=== PATIENT | male | born 1935 | race Caucasian/White ===

== ENCOUNTER 2019-06-16 17:22 | Inpatient (IN) | payer MEDICARE, MEDICAID ==
[~2019-06-16] VITALS: Ht 167.6 cm; Wt 70.9 kg
[~2019-06-16 17:22] MED LIST: AMLO5TAB18 PO; ASPI-611 PO; CLOP75TA35 PO; EVOL140P SQ; HYDR-3686 PO; LABE100T5 PO; LISI-230 PO; OMEP-84 PO; TRAM50TA2 PO
--- NOTE | 2019-06-16 18:05 | NUR ---
LAB AT BEDSIDE, REQUESTED URINE SPECIMAN
[2019-06-16 18:23] LABS: BASOPHILS # (AUTO) 0.1 X10'3 (0-0.2); BASOPHILS % (AUTO) 0.7 % (0-1); EOSINOPHILS # (AUTO) 0.2 X10'3 (0-0.9); EOSINOPHILS % (AUTO) 1.6 % (0-6); HEMATOCRIT 44.3 % (42.0-52.0); HEMOGLOBIN 15.1 g/dl (14.0-17.9); LYMPHOCYTES % (AUTO) 8.1 % (21-51); MEAN CORPUSCULAR HEMOGLOBIN 29.1 PG (27.0-31.0); MEAN CORPUSCULAR VOLUME 85.6 FL (78-98); MEAN PLATELET VOLUME 7.9 FL (7.4-10.4); MONOCYTES # (AUTO) 0.6 X10'3 (0-0.9); MONOCYTES % (AUTO) 4.4 % (2-12); NEUTROPHILS % (AUTO) 85.2 % (42-75); PLATELET COUNT 374 X10'3 (140-440); RED BLOOD COUNT 5.18 X10'6 (4.70-6.10); RED CELL DISTRIBUTION WIDTH 14.2 % (11.5-14.5); WHITE BLOOD COUNT 12.9 X10'3 (4.5-11.0)
[2019-06-16 18:28] LABS: ALANINE AMINOTRANSFERASE 33 U/L (12-78); ALBUMIN 3.7 G/DL (3.4-5.0); ALBUMIN/GLOBULIN RATIO 0.8 (1.1-1.5); ALKALINE PHOSPHATASE 89 IU/L (46-116); ANION GAP 8 (8-16); ASPARTATE AMINO TRANSFERASE 18 U/L (10-37); BILIRUBIN,TOTAL 0.5 MG/DL (0.1-1.0); BLOOD UREA NITROGEN 19 MG/DL (7-18); BUN/CREATININE RATIO 17.3 (5.4-32.0); CALCIUM 10.2 MG/DL (8.5-10.1); CHLORIDE 99 MMOL/L (99-107); GLUCOSE 129 MG/DL (70-104); POTASSIUM 4.1 MMOL/L (3.5-5.1); SODIUM 136 MMOL/L (135-145); TOTAL CARBON DIOXIDE 29.1 MMOL/L (24-32); TOTAL PROTEIN 8.1 G/DL (6.4-8.2); eGFR 64 ML/MIN
[2019-06-16] MEDS ORDERED: ondansetron/PF 4mg/2ml inj IV ONE ×2 (19:15→19:50)
--- NOTE | 2019-06-16 19:15 | NUR ---
Assumed patient care. The patient is alert and well oriented. W/D, fair color. Patient has not voided as of yet. Nausea is now present. Dr. Granado consulted, Zofran 4mg will be given IV. Plan to move patient into a room. A urine sample is pending.
[2019-06-16 19:28] LABS: TROPONIN I < 0.04 NG/ML (0.0-0.05)
--- NOTE | 2019-06-16 19:33 | NUR ---
pt unable to make urine at this time
[2019-06-16] MEDS ORDERED: normal saline 1000ML IV soln IVB ONE (19:50)
[2019-06-16] MEDS ORDERED: morphine 4 MG/ML inj SYRINge IV PRN (19:50)
[2019-06-16] MEDS ORDERED: metroNIDAZOLE-Flagyl 500mg/NS 100 ML IV STA (21:51)
[2019-06-16] MEDS ORDERED: LIDOcaine Viscous 15ml cup MM PRN (22:35)
[2019-06-16] MEDS ORDERED: magnesium 4gm in 100ml NS 100 ML IV PRN (23:35)
[2019-06-16] MEDS ORDERED: ondansetron/PF 4mg/2ml inj IV PRN (23:35)
[2019-06-16] MEDS ORDERED: acetaminophen 325mg tablet PO PRN (23:35)
[2019-06-16] MEDS ORDERED: morphine 2 MG/ML inj. syringe IV PRN (23:35)
[2019-06-16] MEDS ORDERED: potassium Cl 20 mEq SR tablet PO PRN ×2 (23:35)
[2019-06-16] MEDS ORDERED: magnesium 2GM in 50ml NS 50 ML IV PRN (23:35)
[2019-06-16] MEDS ORDERED: potassium CL 10mEq/100ml bag 100 ML IV PRN (23:35)
[2019-06-17] MEDS: normal saline 1000ml 1,000 ML IV SCH ×3 (00:29→22:13)
[2019-06-17 00:30] VITALS: BP 184/90
[2019-06-17] MEDS: morphine 2 MG/ML inj. syringe IV PRN ×2 (00:30→09:18)
[2019-06-17 01:00] VITALS: BP 142/72
[2019-06-17 04:51] LABS: BASOPHILS % (AUTO) 0.4 % (0-1); EOSINOPHILS % (AUTO) 0.3 % (0-6); HEMATOCRIT 37.8 % (42.0-52.0); LYMPHOCYTES % (AUTO) 11.2 % (21-51); MEAN CORPUSCULAR HEMOGLOBIN 29.6 PG (27.0-31.0); MEAN CORPUSCULAR HGB CONC 34.5 g/dL (33.0-36.5); MEAN CORPUSCULAR VOLUME 85.7 FL (78-98); MEAN PLATELET VOLUME 7.8 FL (7.4-10.4); MONOCYTES # (AUTO) 0.8 X10'3 (0-0.9); MONOCYTES % (AUTO) 8.4 % (2-12); NEUTROPHILS # (AUTO) 7.3 X10'3 (1.8-7.7); NEUTROPHILS % (AUTO) 79.7 % (42-75); PLATELET COUNT 310 X10'3 (140-440); RED BLOOD COUNT 4.41 X10'6 (4.70-6.10); RED CELL DISTRIBUTION WIDTH 14.3 % (11.5-14.5); WHITE BLOOD COUNT 9.1 X10'3 (4.5-11.0)
[2019-06-17 05:10] LABS: ANION GAP 7 (8-16); CHLORIDE 103 MMOL/L (99-107); GLUCOSE 111 MG/DL (70-104); POTASSIUM 3.9 MMOL/L (3.5-5.1); SODIUM 138 MMOL/L (135-145)
[2019-06-17 05:11] LABS: ALANINE AMINOTRANSFERASE 26 U/L (12-78); ALBUMIN/GLOBULIN RATIO 0.8 (1.1-1.5); ALKALINE PHOSPHATASE 72 IU/L (46-116); ASPARTATE AMINO TRANSFERASE 19 U/L (10-37); BILIRUBIN,TOTAL 0.5 MG/DL (0.1-1.0); BLOOD UREA NITROGEN 23 MG/DL (7-18); BUN/CREATININE RATIO 19.7 (5.4-32.0); CREATININE 1.17 MG/DL (0.60-1.10); MAGNESIUM 1.5 MG/DL (1.5-2.4); TOTAL PROTEIN 6.8 G/DL (6.4-8.2); eGFR 60 ML/MIN
--- NOTE | 2019-06-17 06:00 | NUR ---
Problems reprioritized. Patient report given, questions answered & plan of care reviewed with Susanna LOMBARDI.
[2019-06-17 07:25] VITALS: BP 155/71
[2019-06-17] MEDS: K and/or MAG REPLACEMENT MC SCH (08:00)
[2019-06-17] MEDS: enoxaparin 40mg/0.4ml syringe SQ SCH (08:00)
[2019-06-17] MEDS ORDERED: traMADol 50MG tablet PO PRN (08:55)
[2019-06-17] MEDS: ciprofloxacin lact 400MG/200ML 200 ML IV SCH ×2 (08:58→19:13)
[2019-06-17] MEDS: HYDROchlorothiazide 12.5mg capsule PO SCH (09:16)
[2019-06-17] MEDS: lisinopril 10 MG tablet PO SCH (09:17)
[2019-06-17 11:00] VITALS: BP 146/60
[2019-06-17] MEDS: metroNIDAZOLE-Flagyl 500mg/NS 100 ML IV SCH (15:20)
--- NOTE | 2019-06-17 18:30 | NUR ---
Problems reprioritized. Patient report given, questions answered & plan of care reviewed with Manny LOMBARDI.
--- NOTE | 2019-06-17 18:53 | NUR ---
Patient in room [facility]. I have received report from Susanna LOMBARDI and had the opportunity to ask questions and assume patient care.
[2019-06-17] MEDS: labetalol 100mg tablet PO SCH (19:12)
[2019-06-17] MEDS: diatr meglu/diatrizoate 30ml oral sol.-(3 dose) bottle PO SCH (20:57)
[2019-06-18] MEDS: morphine 2 MG/ML inj. syringe IV PRN (00:37)
[2019-06-18] MEDS: metroNIDAZOLE-Flagyl 500mg/NS 100 ML IV SCH ×3 (00:38→15:49)
[2019-06-18 05:30] LABS: BASOPHILS % (AUTO) 0.5 % (0-1); EOSINOPHILS # (AUTO) 0.1 X10'3 (0-0.9); EOSINOPHILS % (AUTO) 1.2 % (0-6); HEMATOCRIT 33.8 % (42.0-52.0); HEMOGLOBIN 11.6 g/dl (14.0-17.9); LYMPHOCYTES # (AUTO) 1.2 X10'3 (1.1-4.8); LYMPHOCYTES % (AUTO) 15.3 % (21-51); MEAN CORPUSCULAR HEMOGLOBIN 29.6 PG (27.0-31.0); MEAN CORPUSCULAR HGB CONC 34.3 g/dL (33.0-36.5); MEAN CORPUSCULAR VOLUME 86.3 FL (78-98); MEAN PLATELET VOLUME 7.7 FL (7.4-10.4); MONOCYTES # (AUTO) 0.7 X10'3 (0-0.9); MONOCYTES % (AUTO) 8.3 % (2-12); NEUTROPHILS # (AUTO) 6.1 X10'3 (1.8-7.7); NEUTROPHILS % (AUTO) 74.7 % (42-75); PLATELET COUNT 270 X10'3 (140-440); RED BLOOD COUNT 3.91 X10'6 (4.70-6.10); RED CELL DISTRIBUTION WIDTH 14.3 % (11.5-14.5); WHITE BLOOD COUNT 8.2 X10'3 (4.5-11.0)
[2019-06-18 05:50] LABS: ALANINE AMINOTRANSFERASE 27 U/L (12-78); ALBUMIN 2.9 G/DL (3.4-5.0); ALBUMIN/GLOBULIN RATIO 0.9 (1.1-1.5); ALKALINE PHOSPHATASE 66 IU/L (46-116); ANION GAP 6 (8-16); ASPARTATE AMINO TRANSFERASE 29 U/L (10-37); BILIRUBIN,TOTAL 0.5 MG/DL (0.1-1.0); BLOOD UREA NITROGEN 17 MG/DL (7-18); BUN/CREATININE RATIO 16.5 (5.4-32.0); CALCIUM 8.3 MG/DL (8.5-10.1); CHLORIDE 104 MMOL/L (99-107); CREATININE 1.03 MG/DL (0.60-1.10); GLUCOSE 93 MG/DL (70-104); MAGNESIUM 1.5 MG/DL (1.5-2.4); POTASSIUM 3.4 MMOL/L (3.5-5.1); SODIUM 138 MMOL/L (135-145); TOTAL CARBON DIOXIDE 27.8 MMOL/L (24-32); TOTAL PROTEIN 6.3 G/DL (6.4-8.2); eGFR 69 ML/MIN
--- NOTE | 2019-06-18 06:22 | NUR ---
Problems reprioritized. Patient report given, questions answered & plan of care reviewed with Paulina LOMBARDI.
--- NOTE | 2019-06-18 06:34 | NUR ---
Patient in room [facility]. I have received report from Manny LOMBARDI and had the opportunity to ask questions and assume patient care.
[2019-06-18 07:00] VITALS: BP 155/73
[2019-06-18] MEDS: diatr meglu/diatrizoate 30ml oral sol.-(3 dose) bottle PO SCH ×3 (07:40→20:48)
[2019-06-18] MEDS: K and/or MAG REPLACEMENT MC SCH (08:00)
[2019-06-18] MEDS: ciprofloxacin lact 400MG/200ML 200 ML IV SCH ×2 (09:30→20:14)
[2019-06-18 11:00] VITALS: BP 172/83
[2019-06-18] MEDS: pantoprazole 40mg Tablet.DR PO SCH (11:32)
[2019-06-18] MEDS: labetalol 100mg tablet PO SCH ×2 (11:32→20:13)
[2019-06-18] MEDS: HYDROchlorothiazide 12.5mg capsule PO SCH (11:32)
[2019-06-18] MEDS: amLODIPine 5mg tablet PO SCH (11:32)
[2019-06-18] MEDS: lisinopril 10 MG tablet PO SCH (11:33)
[2019-06-18] MEDS: normal saline 1000ml 1,000 ML IV SCH (11:49)
[2019-06-18] MEDS: enoxaparin 40mg/0.4ml syringe SQ SCH (11:49)
[2019-06-18] MEDS: potassium CL 10mEq/100ml bag 100 ML IV PRN ×4 (11:51→22:45)
[2019-06-18] MEDS ORDERED: LORazepam 0.5 MG tablet PO PRN (15:00)
[2019-06-18 18:00] VITALS: BP 164/78
--- NOTE | 2019-06-18 18:49 | NUR ---
Patient in room [facility]. I have received report from Paulina LOMBARDI and had the opportunity to ask questions and assume patient care.
[2019-06-18] MEDS ORDERED: diatr meglu/diatrizoate 30ml oral sol.-(3 dose) bottle PO SCH (21:00)
[2019-06-19] VITALS: BP 144/84
[2019-06-19] MEDS: normal saline 1000ml 1,000 ML IV SCH ×2 (05:14→07:35)
--- NOTE | 2019-06-19 06:21 | NUR ---
Problems reprioritized. Patient report given, questions answered & plan of care reviewed with MARIA C Carson. Addendum: 06/19/19 at 0623 by Manny Coley RN Report was given to MARIA C Mukherjee
[2019-06-19 06:27] LABS: BASOPHILS % (AUTO) 0.6 % (0-1); EOSINOPHILS # (AUTO) 0.1 X10'3 (0-0.9); EOSINOPHILS % (AUTO) 1.4 % (0-6); HEMATOCRIT 34.5 % (42.0-52.0); HEMOGLOBIN 11.9 g/dl (14.0-17.9); LYMPHOCYTES # (AUTO) 0.9 X10'3 (1.1-4.8); LYMPHOCYTES % (AUTO) 13.3 % (21-51); MEAN CORPUSCULAR HEMOGLOBIN 29.5 PG (27.0-31.0); MEAN CORPUSCULAR HGB CONC 34.7 g/dL (33.0-36.5); MEAN CORPUSCULAR VOLUME 85.2 FL (78-98); MEAN PLATELET VOLUME 7.8 FL (7.4-10.4); MONOCYTES # (AUTO) 0.7 X10'3 (0-0.9); MONOCYTES % (AUTO) 10.3 % (2-12); NEUTROPHILS % (AUTO) 74.4 % (42-75); PLATELET COUNT 272 X10'3 (140-440); RED BLOOD COUNT 4.04 X10'6 (4.70-6.10); WHITE BLOOD COUNT 6.8 X10'3 (4.5-11.0)
[2019-06-19 06:32] LABS: ALANINE AMINOTRANSFERASE 29 U/L (12-78); ALBUMIN 3.1 G/DL (3.4-5.0); ALBUMIN/GLOBULIN RATIO 0.9 (1.1-1.5); ALKALINE PHOSPHATASE 64 IU/L (46-116); ANION GAP 11 (8-16); ASPARTATE AMINO TRANSFERASE 32 U/L (10-37); BILIRUBIN,TOTAL 0.6 MG/DL (0.1-1.0); BLOOD UREA NITROGEN 14 MG/DL (7-18); BUN/CREATININE RATIO 13.9 (5.4-32.0); CALCIUM 8.9 MG/DL (8.5-10.1); CHLORIDE 104 MMOL/L (99-107); CREATININE 1.01 MG/DL (0.60-1.10); GLUCOSE 94 MG/DL (70-104); MAGNESIUM 1.7 MG/DL (1.5-2.4); POTASSIUM 3.3 MMOL/L (3.5-5.1); SODIUM 139 MMOL/L (135-145); TOTAL PROTEIN 6.5 G/DL (6.4-8.2); eGFR 71 ML/MIN
[2019-06-19 07:00] VITALS: BP 188/84
[2019-06-19] MEDS: pantoprazole 40mg Tablet.DR PO SCH (07:35)
[2019-06-19] MEDS: amLODIPine 5mg tablet PO SCH (07:35)
[2019-06-19] MEDS: HYDROchlorothiazide 12.5mg capsule PO SCH (07:35)
[2019-06-19] MEDS: diatr meglu/diatrizoate 30ml oral sol.-(3 dose) bottle PO SCH ×2 (07:35→08:56)
[2019-06-19] MEDS: labetalol 100mg tablet PO SCH ×2 (07:36→20:42)
[2019-06-19] MEDS: metroNIDAZOLE-Flagyl 500mg/NS 100 ML IV SCH ×4 (07:37→23:52)
[2019-06-19] MEDS: ciprofloxacin lact 400MG/200ML 200 ML IV SCH ×2 (07:37→20:42)
[2019-06-19] MEDS: enoxaparin 40mg/0.4ml syringe SQ SCH (07:38)
[2019-06-19] MEDS ORDERED: lisinopril 20mg tablet PO SCH (08:00)
[2019-06-19] MEDS: K and/or MAG REPLACEMENT MC SCH (08:00)
[2019-06-19] MEDS: morphine 2 MG/ML inj. syringe IV PRN ×2 (08:55→20:43)
[2019-06-19] MEDS ORDERED: iohexol 300mg/ml 100ml inj. ONE (09:10)
[2019-06-19] MEDS: potassium CL 10mEq/100ml bag 100 ML IV PRN ×3 (09:47→16:18)
--- NOTE | 2019-06-19 10:36 | NUR ---
HUNG POTASSIUM FOR THIS PT. HE STATED THAT THE POTASSIUM BOTHERED HIM YESTERDAY SO WE ARE RUNNING IT A 75 ML/HR INSTEAD OF 100 ML/HR
--- NOTE | 2019-06-19 17:00 | NUR ---
Patient in room [facility]. I have received report from GEE LOMBARDI and had the opportunity to ask questions and assume patient care.
[2019-06-19 18:00] VITALS: BP 167/66
--- NOTE | 2019-06-19 18:45 | NUR ---
Patient in room [facility]. I have received report from MARIA C Mukherjee and had the opportunity to ask questions and assume patient care.
[2019-06-19] MEDS ORDERED: ASPIRIN 81 MG PO SCH (21:00)
[2019-06-20] VITALS: BP 156/66
[2019-06-20 06:22] LABS: BASOPHILS % (AUTO) 0.7 % (0-1); EOSINOPHILS # (AUTO) 0.3 X10'3 (0-0.9); EOSINOPHILS % (AUTO) 5.3 % (0-6); LYMPHOCYTES # (AUTO) 0.9 X10'3 (1.1-4.8); LYMPHOCYTES % (AUTO) 17.2 % (21-51); MEAN CORPUSCULAR HEMOGLOBIN 29.5 PG (27.0-31.0); MEAN CORPUSCULAR HGB CONC 34.2 g/dL (33.0-36.5); MEAN CORPUSCULAR VOLUME 86.3 FL (78-98); MEAN PLATELET VOLUME 7.9 FL (7.4-10.4); MONOCYTES # (AUTO) 0.7 X10'3 (0-0.9); MONOCYTES % (AUTO) 12.3 % (2-12); NEUTROPHILS # (AUTO) 3.5 X10'3 (1.8-7.7); NEUTROPHILS % (AUTO) 64.5 % (42-75); PLATELET COUNT 260 X10'3 (140-440); RED BLOOD COUNT 4.06 X10'6 (4.70-6.10); RED CELL DISTRIBUTION WIDTH 14.3 % (11.5-14.5); WHITE BLOOD COUNT 5.5 X10'3 (4.5-11.0)
--- NOTE | 2019-06-20 06:22 | NUR ---
Problems reprioritized. Patient report given, questions answered & plan of care reviewed with MARIA C Mukherjee.
[2019-06-20 06:36] LABS: ALANINE AMINOTRANSFERASE 27 U/L (12-78); ALBUMIN 3.1 G/DL (3.4-5.0); ALBUMIN/GLOBULIN RATIO 0.9 (1.1-1.5); ALKALINE PHOSPHATASE 63 IU/L (46-116); ANION GAP 10 (8-16); ASPARTATE AMINO TRANSFERASE 31 U/L (10-37); BILIRUBIN,TOTAL 0.5 MG/DL (0.1-1.0); BLOOD UREA NITROGEN 9 MG/DL (7-18); BUN/CREATININE RATIO 8.8 (5.4-32.0); CALCIUM 9.1 MG/DL (8.5-10.1); CHLORIDE 106 MMOL/L (99-107); CREATININE 1.02 MG/DL (0.60-1.10); GLUCOSE 124 MG/DL (70-104); MAGNESIUM 1.8 MG/DL (1.5-2.4); POTASSIUM 3.8 MMOL/L (3.5-5.1); SODIUM 141 MMOL/L (135-145); TOTAL CARBON DIOXIDE 25.3 MMOL/L (24-32); TOTAL PROTEIN 6.5 G/DL (6.4-8.2); eGFR 70 ML/MIN
[2019-06-20 07:17] VITALS: BP 126/93
[2019-06-20] MEDS: K and/or MAG REPLACEMENT MC SCH (08:00)
[2019-06-20] MEDS ORDERED: lisinopril 20mg tablet PO SCH (08:00)
[2019-06-20] MEDS ORDERED: aspirin 81mg tablet.DR PO SCH (08:00)
[2019-06-20] MEDS ORDERED: clopidogrel 75mg tablet PO SCH (08:00)
[2019-06-20] MEDS: ciprofloxacin lact 400MG/200ML 200 ML IV SCH (08:00)
[2019-06-20] MEDS: metroNIDAZOLE-Flagyl 500mg/NS 100 ML IV SCH (08:13)
[2019-06-20] MEDS: pantoprazole 40mg Tablet.DR PO SCH (08:13)
[2019-06-20] MEDS: HYDROchlorothiazide 12.5mg capsule PO SCH (08:14)
[2019-06-20] MEDS: labetalol 100mg tablet PO SCH (08:14)
[2019-06-20] MEDS: amLODIPine 5mg tablet PO SCH (08:15)
[2019-06-20] MEDS: enoxaparin 40mg/0.4ml syringe SQ SCH (08:15)
--- NOTE | 2019-06-20 09:14 | NUR ---
Patient in room [facility]. I have received report from GEE LOMBARDI and had the opportunity to ask questions and assume patient care.
[2019-06-20 11:00] VITALS: BP 150/62
[2019-06-20] MEDS ORDERED: LEVO500T89 PO (11:14)
[2019-06-20] MEDS ORDERED: PANT40TA4 PO (11:14)
[2019-06-20] MEDS ORDERED: METR500T PO (11:14)
== END 2019-06-20 13:55 | disposition home health service (06) | DRG 372 ==
LOC: ER 17:23 → SUR 3N 23:53 → CMPBEDREQ 23:56
PROVIDERS: ADMIT Family Medicine; ATTEND Family Medicine
PROC: 0D9670Z Drainage of Stomach with Drainage Device, Via Natural or Artificial Opening (ICD-10-PCS; principal; 2019-06-17)
DX: A04.9 Bacterial intestinal infection, unspecified (principal); K56.600 Partial intestinal obstruction, unspecified as to cause; E78.00 Pure hypercholesterolemia, unspecified; E78.5 Hyperlipidemia, unspecified; F41.9 Anxiety disorder, unspecified; K59.00 Constipation, unspecified; G25.81 Restless legs syndrome; H91.90 Unspecified hearing loss, unspecified ear; I10 Essential (primary) hypertension; I25.10 Atherosclerotic heart disease of native coronary artery without angina pectoris; I73.9 Peripheral vascular disease, unspecified; Z79.02 Long term (current) use of antithrombotics/antiplatelets; Z79.82 Long term (current) use of aspirin; Z79.899 Other long term (current) drug therapy; Z88.2 Allergy status to sulfonamides; Z88.1 Allergy status to other antibiotic agents; Z83.3 Family history of diabetes mellitus; Z86.73 Personal history of transient ischemic attack (TIA), and cerebral infarction without residual deficits; Z87.19 Personal history of other diseases of the digestive system; Z95.5 Presence of coronary angioplasty implant and graft; Z95.820 Peripheral vascular angioplasty status with implants and grafts
CPT/HCPCS: 36415; 74176; 74177; 80053; 83605; 83735; 84484; 85025; 85610; 87081; 93005; 93975; 96361; 96365; 96375; 96376; 99285; G0378; J0744; J1650; J2270; J2405; J3480; J3490; J7030; Q9963; Q9967